=== PATIENT | female | born 1985 | race Caucasian/White ===

== ENCOUNTER 2018-03-17 07:52 | Day surgery (SDC) | payer BC ==
[2018-03-17] MEDS ORDERED: morphine 4 MG/ML VIAL (08:23)
[2018-03-17] MEDS ORDERED: ONDANSETRON 4 MG INJ ×2 (08:23→10:28)
[2018-03-17] MEDS: ONDANSETRON 4 MG INJ IV (08:24)
[2018-03-17] MEDS: SOD CHLORIDE 0.9% 1,000 ML IV (08:24)
[2018-03-17] MEDS: morphine 4 MG/ML VIAL IV (08:24)
[2018-03-17 08:27] LABS: ADD MAN DIFF? NO
[2018-03-17 08:32] LABS: BASOPHILS % 0.5 % (0.0-2.0); EOSINOPHILS # 0.1 10^3/ul (0.0-0.5); EOSINOPHILS % 0.7 % (0.0-7.0); HEMATOCRIT 37.8 % (37.0-47.0); HEMOGLOBIN 12.4 g/dl (12.0-16.0); LYMPHOCYTES # 2.2 10^3/ul (0.8-2.9); LYMPHOCYTES % 25.3 % (15.0-51.0); MEAN CORPUSCULAR HEMOGLOBIN 27.6 pg (29.0-33.0); MEAN CORPUSCULAR HGB CONC 32.8 g/dl (32.0-37.0); MEAN PLATELET VOLUME 10.7 fl (7.4-10.4); MONOCYTE # 0.5 10^3/ul (0.3-0.9); NEUTROPHIL # 5.7 10^3/ul (1.6-7.5); NEUTROPHILS % 67.3 % (39.0-77.0); PLATELET COUNT 211 10^3/UL (140-415); RED CELL DISTRIBUTION WIDTH 13.3 % (11.5-14.5)
[2018-03-17 08:32] LABS: WHITE BLOOD COUNT 8.5 10^3/ul (4.8-10.8)
[2018-03-17 08:49] LABS: ALANINE AMINOTRANSFERASE 28 IU/L (13-69); ALBUMIN 4.2 g/dl (3.3-4.9); ALBUMIN/GLOBULIN RATIO 0.93; ALKALINE PHOSPHATASE 72 IU/L (42-121); ANION GAP 16 (8-16); ASPARTATE AMINO TRANSFERASE 20 IU/L (15-46); BILIRUBIN,INDIRECT 0.3 mg/dl (0-1.1); BILIRUBIN,TOTAL 0.3 mg/dl (0.2-1.3); BLOOD UREA NITROGEN 8 mg/dl (7-20); CALCIUM 8.8 mg/dl (8.4-10.2); CARBON DIOXIDE 21 mmol/L (21-31); CHLORIDE 107 mmol/L (97-110); CREATININE 0.54 mg/dl (0.44-1.00); GLUCOSE 112 mg/dl (70-220); LIPASE 89 U/L (23-300); POTASSIUM 3.6 mmol/L (3.5-5.1); SODIUM 140 mmol/L (135-144); TOTAL PROTEIN 8.7 g/dl (6.1-8.1)
[2018-03-17 08:53] LABS: INR 0.97
[2018-03-17 08:54] LABS: PARTIAL THROMBOPLASTIN TIME 36.5 Sec (25.0-35.0)
[2018-03-17 10:08] LABS: ADD UMIC YES; UR ASCORBIC ACID NEGATIVE (NEGATIVE); UR BILIRUBIN (Dip) NEGATIVE (NEGATIVE); UR BLOOD (Dip) 3+ mg/dL (NEGATIVE); UR CLARITY CLOUDY (CLEAR); UR COLOR RED (YELLOW); UR GLUCOSE (Dip) NEGATIVE (NEGATIVE); UR KETONES (Dip) NEGATIVE (NEGATIVE); UR LEUKOCYTE ESTERASE (Dip) TRACE Leu/ul (NEGATIVE); UR NITRITE (Dip) NEGATIVE (NEGATIVE); UR RBC > 182 /HPF (0-5); UR SPECIFIC GRAVITY (Dip) 1.008 (1.003-1.030); UR SQUAMOUS EPITHELIAL CELL FEW /HPF (FEW); UR TOTAL PROTEIN (Dip) 2+ mg/dl (NEGATIVE); UR UROBILINOGEN (Dip) NEGATIVE (NEGATIVE); UR WBC 0 /HPF (0-5)
[2018-03-17] MEDS ORDERED: CEFAZOLIN 1 GM INJ (10:27)
[2018-03-17] MEDS ORDERED: PROPOFOL 20 ML (10:27)
[2018-03-17] MEDS ORDERED: MIDAZOLAM 1 MG/ML 2 ML INJ (10:28)
[2018-03-17] MEDS ORDERED: METOCLOPRAMIDE 10 MG INJ (10:28)
[2018-03-17] MEDS ORDERED: KETOROLAC 30 MG INJ (10:28)
[2018-03-17] MEDS ORDERED: FENTAnyl 50 MCG/ML VIAL (10:32)
[2018-03-17] MEDS ORDERED: OXYTOCIN 10 UNIT INJ (10:55)
[2018-03-17] MEDS ORDERED: KETOROLAC 30 MG INJ IV (11:00)
[2018-03-17] MEDS ORDERED: HYDROmorphONE 1 MG/5 ML IV SYRINGE IV ×3 (11:00)
[2018-03-17] MEDS ORDERED: ONDANSETRON 4 MG INJ IV (11:00)
[2018-03-17] MEDS ORDERED: MEPERIDINE 25 MG INJ IV (11:00)
[2018-03-17] MEDS ORDERED: DIPHENHYDRAMINE 50 MG INJ IV (11:00)
[2018-03-17] MEDS ORDERED: OXYCODONE/ACETAMINOPHEN (5/325) TAB PO ×2 (11:00)
== END 2018-03-17 13:15 | disposition home or self-care (01) ==
LOC: E/R 07:52 → SUR 10:07 → GIL 10:07 → SDS 10:24 → SUR 13:15
DX: O02.1 Missed abortion (principal); E03.9 Hypothyroidism, unspecified
CPT/HCPCS: 36415; 71045; 76817; 80053; 81001; 83690; 85025; 85610; 85730; 86850; 86860; 86870; 86880; 86900; 86901; 86902; 86906; 86970; 86978; 88305; 93005; 96374; 96375; 99285-25